=== PATIENT | female | born 1980 | race Asian ===

== ENCOUNTER 2022-03-20 13:55 | Emergency (ER) | payer BC ==
[~2022-03-20] VITALS: Ht 160 cm; Wt 81.6 kg
[2022-03-20 14:00] VITALS: BP_SYST 142
--- NOTE | 2022-03-20 14:25 | NUR ---
SING AT BEDSIDE FOR ASSESS. AWAITING ADDITIONAL ORDERS. VSS. NAD NOTED. SPOUSE AT BEDSIDE.
[2022-03-20 14:55] LABS: BASOPHILS % (AUTO) 0.5 % (0.0-2.0); EOSINOPHILS # (AUTO) 0.1 K/uL (0.0-0.4); EOSINOPHILS % (AUTO) 0.8 % (0.0-4.0); HEMATOCRIT 38.5 % (36-48); HEMOGLOBIN 13.1 g/dL (12.0-16.0); LYMPHOCYTES # (AUTO) 2.1 K/uL (1.0-5.5); LYMPHOCYTES % (AUTO) 29.4 % (20.5-51.5); MEAN CORPUSCULAR HEMOGLOBIN 30 pg (27-31); MEAN CORPUSCULAR HGB CONC 34 % (32-36); MEAN CORPUSCULAR VOLUME 87 fL (79.0-98.0); MONOCYTES # (AUTO) 0.6 K/uL (0.0-1.0); MONOCYTES % (AUTO) 8.8 % (1.7-9.3); NEUTROPHILS # (AUTO) 4.3 K/uL (1.8-7.7); NEUTROPHILS % (AUTO) 60.5 % (40.0-70.0); PLATELET COUNT (AUTO) 294 K/uL (130-430); RED BLOOD CELL COUNT(AUTO) 4.41 MIL/uL (4.2-6.2); RED CELL DISTRIBUTION WIDTH 12.8 % (9.0-15.0); WHITE BLOOD COUNT (AUTO) 7.1 K/uL (4.8-10.8)
[2022-03-20 15:04] LABS: ANION GAP 4 (5-15); CALCIUM 8.2 mg/dL (8.4-11.0); CHLORIDE 107 mmol/L (98-107); CREATININE 0.68 mg/dL (0.55-1.30); GLUCOSE 112 mg/dL (70-99); POTASSIUM 4.3 mmol/L (3.5-5.1); SODIUM SERUM 140 mmol/L (136-145); UREA NITROGEN, BLOOD 13 mg/dL (8-21)
[2022-03-20 15:08] LABS: GFR AFRICAN AMERICAN 121 mL/min (>90)
[2022-03-20 15:20] LABS: ALANINE AMINOTRANSFERASE 12 U/L (12-78); ALBUMIN 3.8 g/dL (3.4-4.8); ASPARTATE AMINOTRANSFERASE 17 U/L (10-37); THYROID STIMULATING HORMONE 1.06 uIu/mL (0.36-3.74); TOTAL BILIRUBIN 0.5 mg/dL (0.0-1.0)
[2022-03-20 16:44] VITALS: BP_SYST 124
--- NOTE | 2022-03-20 16:47 | NUR ---
PT DISCHARGED GIVEN ACI. ALL QUESTIONS ANSWERED. VSS. NAD NOTED. PT AMBULATED TO EXIT WITH SPOUSE. WRIST BAND REMOVED. END OF CARE.
== END 2022-03-20 16:44 | disposition home or self-care (01) ==
LOC: SED 13:55
DX: R07.89 Other chest pain (principal); R00.2 Palpitations; Z88.0 Allergy status to penicillin; Z79.899 Other long term (current) drug therapy
CPT/HCPCS: 36415; 71045; 80053; 81002; 81025; 84439; 84443; 84479; 84484; 85025; 93005; 99285